=== PATIENT | male | born 1970 | race Hispanic/Latino ===

== ENCOUNTER 2023-09-05 14:31 | Emergency (ER) | payer MEDICAID ==
[2023-09-05 15:33] LABS: #Eosinphils 0.3 thou/uL (0.0-0.7); #Monocytes 0.5 thou/uL (0.11-0.59); %Basophils 0.5 % (0.0-1.0); %Eosinophils 3.3 % (0.0-10.0); %Monocytes 6.2 % (0.0-10.0); %Neutrophils 75.6 % (42.0-75.0); Hematocrit 26.7 % (42.0-52.0); Hemoglobin 8.4 g/dL (14.0-18.0); Mean Corpuscular HGB CONC 31.5 g/dL (32.0-36.0); Mean Corpuscular Hemoglobin 29.6 pg (27.0-31.0); Mean Platelet Volume 10.3 fL (7.4-10.4); Platelet Count 324 10x3/uL (130-400); Red Blood Cell (RBC) Count 2.84 mill/uL (4.70-6.10); White Blood Cell (WBC) Count 7.9 10x3/uL (4.8-10.8)
[2023-09-05 15:50] LABS: ALT (SGPT) 14 U/L (8-55); AST (SGOT) 17 U/L (5-34); Albumin 3.2 g/dL (3.5-5.0); Alkaline Phosphatase 133 U/L (40-110); Anion Gap 14 mmol/L (10-20); BUN (Urea Nitrogen) 58 mg/dL (8.4-25.7); Bilirubin, Total 0.4 mg/dL (0.2-1.2); Calc. Creatinine Clearance 0 mL/min (70-130); Calcium 8.8 mg/dL (7.8-10.44); Carbon Dioxide 22 mmol/L (22-29); Chloride 112 mmol/L (98-107); Estimated GFR 12; Globulin 3.8 g/dL (2.4-3.5); Glucose 190 mg/dL (70-105); Sodium 141 mmol/L (136-145)
[2023-09-05 15:59] LABS: Critical Call Chemistry NUR.LAP1 AT 1558; Potassium 6.7 mmol/L (3.5-5.1)
== END 2023-09-05 20:55 | disposition home or self-care (01) ==
LOC: ERS 14:31
DX: I13.2 Hypertensive heart and chronic kidney disease with heart failure and with stage 5 chronic kidney disease, or end stage renal disease (principal); E11.22 Type 2 diabetes mellitus with diabetic chronic kidney disease; I50.9 Heart failure, unspecified; N18.6 End stage renal disease; E87.5 Hyperkalemia; Z99.2 Dependence on renal dialysis; Z75.8 Other problems related to medical facilities and other health care
CPT/HCPCS: 36415; 85025; 93005